=== PATIENT | female | born 1945 | race Two or more races ===

== ENCOUNTER → 2024-01-27 | Outpatient (CLI) | payer MEDICARE ==
[~2024-01-27] VITALS: Ht 147.3 cm; Wt 65.8 kg
[2024-01-27] MEDS: ADENOSINE 55 MG in GIVE UN-DILUTED 0 ML IV STA (09:44)
== END | disposition home or self-care (01) ==
LOC: XYW 07:55
PROVIDERS: ATTEND Specialist
DX: R00.2 Palpitations (principal); R06.02 Shortness of breath; E78.5 Hyperlipidemia, unspecified; I10 Essential (primary) hypertension; M06.9 Rheumatoid arthritis, unspecified
CPT/HCPCS: 78452; 93017; A9500; J0153